=== PATIENT | female | born 1980 | race Caucasian/White ===

== ENCOUNTER 2017-10-08 00:02 | Inpatient (IN) | payer BC ==
[2017-10-08] VITALS (12 sets, daily range): BP systolic 111–145; BP diastolic 47–72; PULSE 57–97; TEMP 97.8–98.9
[~2017-10-08] VITALS: Ht 152.4 cm; Wt 57.3 kg
[~2017-10-08 00:02] MED LIST: MOTRIN 600600 MG/TAB PO; PRENATAL1 TA7 PO
[2017-10-08 00:44] LABS: BASO % 0.3 % (0.0-2.0); EOS # 0.2 (0.0-0.7); GRAN % 70.4 % (42.2-75.2); HEMATOCRIT 39.6 % (37.0-47.0); HEMOGLOBIN 14.3 g/dl (12.5-16.0); LYMPH # 2.3 (1.2-3.4); LYMPH % 20.3 % (20.0-51.0); MEAN CELL VOLUME 92 fl (80.0-100.0); MEAN CORPUSCULAR HEMOGLOBIN 33 pg (27.0-31.0); MEAN CORPUSCULAR HGB CONC 36 g/dl (33.0-37.0); MEAN PLATELET VOLUME 13.5 fl (7.4-10.4); MONO # 0.7 (0.1-0.6); MONO % 6.2 % (1.7-9.3); PLATELET COUNT 101 K/mm3 (130-400); RED BLOOD COUNT 4.29 M/mm3 (4.10-5.30); REDCELL DISTRIBUTION WIDTH-CV 12.9 % (11.5-14.5)
[2017-10-09 07:10] LABS: HEMATOCRIT 37.6 % (37.0-47.0); HEMOGLOBIN 12.9 g/dl (12.5-16.0); MEAN CORPUSCULAR HEMOGLOBIN 33 pg (27.0-31.0); MEAN CORPUSCULAR HGB CONC 34 g/dl (33.0-37.0); MEAN PLATELET VOLUME 13.2 fl (7.4-10.4); PLATELET COUNT 99 K/mm3 (130-400); RED BLOOD COUNT 3.88 M/mm3 (4.10-5.30); REDCELL DISTRIBUTION WIDTH-CV 13.4 % (11.5-14.5)
[2017-10-09 07:13] LABS: MEAN CELL VOLUME 97 fl (80.0-100.0)
[2017-10-09 07:56] VITALS: BP 106/50; PULSE 76; TEMP 97.8
== END 2017-10-09 11:30 | disposition home or self-care (01) | DRG 775 ==
LOC: LDRO 00:02 → LDR 00:21 → OB 03:30
PROVIDERS: Obstetrics & Gynecology
PROC: 10E0XZZ Delivery of Products of Conception, External Approach (ICD-10-PCS; principal; 2017-10-08)
PROC: 0KQM0ZZ Repair Perineum Muscle, Open Approach (ICD-10-PCS; 2017-10-08)
DX: O70.1 Second degree perineal laceration during delivery (principal); J45.909 Unspecified asthma, uncomplicated; O99.52 Diseases of the respiratory system complicating childbirth; Z3A.39 39 weeks gestation of pregnancy; Z37.0 Single live birth
CPT/HCPCS: J2590

== ENCOUNTER 2020-10-29 02:54 | Inpatient (IN) | payer BC ==
[~2020-10-29] VITALS: Ht 152.4 cm; Wt 58.6 kg
[2020-10-29] VITALS (14 sets, daily range): BP systolic 97–124; BP diastolic 51–81; PULSE 69–92; TEMP 97.8–98.5
--- NOTE | 2020-10-29 03:00 | NUR ---
0300- PATIENT AMBULATORY TO THE UNIT WITH BY HER SIDE. PRESENTS WITH COMPLAINT THAT HER WATER BROKE AT HOME AT 0215. PATIENT STATES SHE IS HAVING SOME IRREGULAR CONTRACTIONS, NO BLEEDING, GFM. PATIENT ORIENTATED TO ROOM AND CHANGED INTO CLEAN GOWN. 0308- EFM AND TOCO ON AND TRACING. VITALS TAKEN, ASSESSMENT COMPLETED. 0315- SVE WAS 5/80/-2 WITH POSITIVE AMNIOTRACE AND CLEAR FREE FLUID RETURN IN THIS RN'S HAND DURING CHECK. PATIENT NOTIFIED OF PLAN OF CARE AND VERBALIZED UNDERSTANDING. DENIED FURTHER NEEDS. CALL LIGHT WITHIN REACH.
[2020-10-29 04:33] LABS: BASO % 0.3 % (0.0-2.0); EOS # 0.1 (0.0-0.7); GRAN # 8.5 (1.4-6.5); GRAN % 78.5 % (42.2-75.2); HEMATOCRIT 40.3 % (37.0-47.0); HEMOGLOBIN 14.4 g/dl (12.5-16.0); LYMPH # 1.6 (1.2-3.4); LYMPH % 14.5 % (20.0-51.0); MEAN CELL VOLUME 92 fl (80.0-100.0); MEAN CORPUSCULAR HEMOGLOBIN 33 pg (27.0-31.0); MEAN CORPUSCULAR HGB CONC 36 g/dl (33.0-37.0); MONO # 0.5 (0.1-0.6); PLATELET COUNT 129 K/mm3 (130-400); RED BLOOD COUNT 4.39 M/mm3 (4.10-5.30); REDCELL DISTRIBUTION WIDTH-CV 12.9 % (11.5-14.5)
[2020-10-29] MEDS ORDERED: CALCIUM 600MG+D1 TAB PO (04:42)
--- NOTE | 2020-10-29 06:00 | NUR ---
0600- PATIENT CALLED OUT AND STATED SHE WAS STARTING TO FEEL A LITTLE PRESSURE WITH CONTRACTIONS. PATIENT HAD BEEN AMBULATING AND HAD JUST GOTTEN BACK TO THE ROOM 0602- EFM AND TOCO BACK ON AND TRACING. PATIENT IN THE MIDDLE OF CONTRACTION AT THIS POINT. 0605- SVE - COMPLETE AND +2. THIS RN CALLED FOR TABLE TO BE SET UP, ADDITIONAL LABOR SUPPORT. CALLED PROVIDER AND NURSERY WELL. THIS RN AND Harjit PASTRANA RN STAYED IN THE ROOM WITH THE PATIENT WHILE WAITING ON THE PROVIDER. 0615- DAY SHIFT LABOR NURSES IN THE ROOM TO TAKE OVER. BEDSIDE REPORT GIVEN. 0619- DR. BRANCH IN THE ROOM FOR DELIVERY ALONG WITH DAYSHIFT NURSERY NURSES. THIS RN PASSES OFF TO DAYSHIFT AT THIS POINT.
--- NOTE | 2020-10-29 06:19 | NUR ---
This RN and Nicky Arteaga RN and bedside report received from [place]. FHR tracing in the 90bpm at this time and patient having the urge to push. Patient begins to push with Dr. Pratt with contractions. 0624: Spontaneous delivery of viable male-head followed by body. to patients abdomen and bulb syringed. Elizabeth JASSO assumes care of . Cord clamped by physician and cut by FOB. Cord blood obtained. 0626: Spontaneous delivery of placenta and pitocin bolus started per protocol. Fundal massage done/firm/bleeding WNL Dr. Pratt injects lidocaine to perineum at this time and patient tolerates well. Physician begins to repair laceration. Patient repositioned and pad to perineum. Plan of care discussed.
--- NOTE | 2020-10-29 08:20 | NUR ---
Patient ambulates to bathroom with standby assist, voids, pericare done, new gown/underwear/pad on. Patient to nursery to watch baby bath.
[2020-10-29] MEDS ORDERED: IBU800 M1 PO (09:51)
[2020-10-30 08:55] VITALS: BP 99/65; PULSE 99; TEMP 98.1
== END 2020-10-30 15:00 | disposition home or self-care (01) | DRG 807 ==
LOC: LDRO 02:54 → LDR 03:00 → OB 08:15
PROVIDERS: Obstetrics & Gynecology; ADMIT Obstetrics & Gynecology
PROC: 10E0XZZ Delivery of Products of Conception, External Approach (ICD-10-PCS; principal; 2020-10-29)
PROC: 0KQM0ZZ Repair Perineum Muscle, Open Approach (ICD-10-PCS; 2020-10-29)
DX: O70.1 Second degree perineal laceration during delivery (principal); Z37.0 Single live birth; Z3A.39 39 weeks gestation of pregnancy
CPT/HCPCS: J2590; J7120

== ENCOUNTER → 2021-09-28 | Outpatient (CLI) | payer BC ==
[~2021-09-28] MED LIST changes: +CALCIUM 600MG+D1 TAB PO; +IBU800 M1 PO
== END ==
LOC: COL.PUL 10:52
DX: R06.02 Shortness of breath (principal)